=== PATIENT | female | born 1980 | race Caucasian/White ===

== ENCOUNTER → 2016-12-26 | Outpatient (CLI) | payer OTHER ==
[~2016-12-26] MED LIST: ALBUTEROL17 GM INH; BENZONATATE PO; NO MEDICATIONS; TOPAMAX PO; VOLTAREN50 MG PO; ZITHROMAX PO
--- NOTE | ~2016-12-26 | MY26 ---
[facility] A Service of [facility] RADIOLOGY TEXT RESULTS PATIENT: BACILIO HERNANDEZ LOCATION: [facility] : [birth year] UNIT #: [id number] AGE: [address]: VANESSA DICKEY APRN SEX: F ORDER DR: [id number] [facility] [address] [place], [place] [address] [id number] O MR#: [id number] Acc #: [id number] NAME: BACILIO HERNANDEZ : 1980 SEX: F STUDY DATE/TIME: 12/26/2016 10:05 UNIT: [facility] ROOM: STUDY DESCRIPTION: MY [facility] DIAGNOSTIC W/ CAD BILAT Attending Physician: Vanessa Dickey Aprn Referring Physician: Vanessa Dickey Aprn Ordering Physician: Vanessa Dickey Aprn Primary Care Physician: Vanessa Dickey Aprn MEDICAL IMAGING REPORT This report is preliminary unless electronic signature is present EXAM Bilateral digital diagnostic mammogram. INDICATION Left breast pain for the past 2 years. Patient reports a palpable area in the upper outer quadrant of the left breast for the past 2 years. PROCEDURE Bilateral CC and MLO views. True lateral views of the left breast. Spot compression views in the CC and MLO projections. Left XCCL view. All images obtained on a digital mammography unit. FDA-approved CAD device utilized. COMPARISON None FINDINGS Scattered fibroglandular density. There is asymmetric tissue in the upper outer quadrant of the left breast that does not completely efface on spot compression but shows no specific mass. There is no suspicious calcification. There is no dominant mass in the right breast. Targeted ultrasound of the upper outer quadrant of the left breast shows no sonographic abnormality only dense breast tissue. IMPRESSION Asymmetric tissue in the upper outer quadrant of the left breast with no discrete mammographic evidence for mass and no mass seen on concurrently performed ultrasound. Recommend continued clinical followup. Patients over the age of 40 are entered into a reminder system with target due date for the next mammogram. A result letter will also be sent to the patient. [facility] A Service [facility] RADIOLOGY TEXT RESULTS PATIENT: BACILIO HERNANDEZ LOCATION: [facility] : 78 UNIT #: [id number] AGE: [address]: VANESSA DICKEY APRN SEX: F ORDER DR: BIRADS: 2 Benign finding. Dictated by... Gene Berry M.D. THIS IS AN ELECTRONICALLY VERIFIED REPORT Gene Berry M.D. at 12/27/2016 7:07 AM CAROLANN/sunil TD: 12/26/2016 13:48 JOB #: [id number] MEDICAL IMAGING REPORT Page 1 of 1 COPY
--- NOTE | ~2016-12-26 | US24 ---
[facility] A Service of [facility] RADIOLOGY TEXT RESULTS PATIENT: BACILIO HERNANDEZ LOCATION: [facility] : 78 UNIT #: [id number] AGE: [address]: VANESSA DICKEY APRN SEX: F ORDER DR: [id number] [facility] [address] [place], [place] [address] [id number] O MR#: [id number] Acc #: [id number] NAME: BACILIO HERNANDEZ : 1980 SEX: F STUDY DATE/TIME: 12/26/2016 10:26 UNIT: [facility] ROOM: STUDY DESCRIPTION: US Breast Unilateral Attending Physician: Vanessa Dickey Aprn Referring Physician: Vanessa Dickey Aprn Ordering Physician: Vanessa Dickey Aprn Primary Care Physician: Vanessa Dickey Aprn MEDICAL IMAGING REPORT This report is preliminary unless electronic signature is present EXAM Left breast ultrasound INDICATIONS Left breast pain and palpable concern, upper outer quadrant, left breast. PROCEDURE Phillips-scale imaging, upper outer quadrant, left breast. COMPARISON Concurrently performed diagnostic mammogram. FINDINGS / IMPRESSION Refer to separately dictated diagnostic mammogram for workup, plans, and recommendations. BIRADS: 2 Benign finding. Dictated by... Gene Berry M.D. THIS IS AN ELECTRONICALLY VERIFIED REPORT Gene Berry M.D. at 12/27/2016 7:07 AM Humberto TD: 12/26/2016 13:52 JOB #: [id number] MEDICAL IMAGING REPORT Page 1 of 1 COPY
== END | disposition home or self-care (01) ==
LOC: CWCC 09:36
DX: N64.4 Mastodynia (principal)
CPT/HCPCS: 76641; G0204